=== PATIENT | female | born 1980 | race African-American/Black ===

== ENCOUNTER 2016-06-11 15:16 | Inpatient (IN) ==
[2016-06-12] MEDS ORDERED: BRETHINE SUBQ PRN (00:10)
[2016-06-12] MEDS ORDERED: TYLENOL PO PRN (00:10)
[2016-06-12] MEDS ORDERED: PEPCID PO ONE (00:10)
[2016-06-12] MEDS ORDERED: ZOFRAN IV PRN (00:10)
[2016-06-12] MEDS ORDERED: STADOL IV PRN ×3 (00:10)
[2016-06-12] MEDS ORDERED: AMBIEN PO PRN ×2 (00:10→10:22)
[2016-06-12] MEDS ORDERED: LR 1,000 ML IV ONE (00:10)
[2016-06-12] MEDS ORDERED: REGLAN PO ONE (00:10)
[2016-06-12] MEDS ORDERED: PEPCID PO PRN (00:10)
[2016-06-12] MEDS ORDERED: KEFZOL 1 GM/D5W 1 GM/50 ML IVPB IV PRN (00:10)
[2016-06-12] MEDS ORDERED: PEPCID IV PRN (00:10)
[2016-06-12] MEDS ORDERED: AMPICILLIN 2 GM/NS 2 GM/100 ML IVPB IV ONE (00:10)
[2016-06-12 02:01] LABS: MANUAL DIFF NEEDED? NO
[2016-06-12 02:22] LABS: BASO% 0.1 % (0.0-0.8); EOS# 0.06 X1000 (0.0-0.7); EOS% 0.8 % (0.0-10.0); HEMATOCRIT 34.1 % (37.0-47.0); HEMOGLOBIN 11.2 g/dL (12.0-16.0); IMM GRAN# 0.02 X1000 (0.0-0.04); IMM GRAN% 0.3 % (0.0-0.5); LYMPH# 2.44 X1000 (1.2-3.4); LYMPH% 30.9 % (20.5-51.1); MCH 28.5 PG (27-31); MCHC 32.8 g/dL (33-37); MCV 86.8 FL (81-99); MONO# 0.83 X1000 (0.11-0.59); MONO% 10.5 % (1.7-9.3); MPV 10.3 FL (7.4-10.4); NEUT% 57.4 % (42.2-75.2); PLT 281 X1000 (130-400); RBC 3.93 XMIL (4.2-5.4)
[2016-06-12] MEDS ORDERED: CYTOTEC PO ONE (03:00)
[2016-06-12] MEDS: AMPICILLIN 1 GM/NS 1 GM/50 ML IVPB IV SCH ×2 (04:49→08:50)
[2016-06-12] MEDS ORDERED: PITOCIN 30 UNITS/LR 30 UNITS/500 ML IV.SOLN IV SCH (06:30)
[2016-06-12] MEDS ORDERED: LR 2,000 ML ONE (07:20)
[2016-06-12] MEDS ORDERED: MINERAL OIL ONE (09:34)
[2016-06-12] MEDS ORDERED: XYLOCAINE-MPF 1% ONE (09:34)
[2016-06-12] MEDS ORDERED: NORCO-5 PO PRN (10:22)
[2016-06-12] MEDS ORDERED: BOOSTRIX VACCINE IM ONE (10:22)
[2016-06-12] MEDS ORDERED: PITOCIN 30 UNITS/LR 30 UNITS/500 ML IV.SOLN IV ONE (10:22)
[2016-06-12] MEDS ORDERED: NORCO-10 PO PRN (10:22)
[2016-06-12] MEDS ORDERED: PITOCIN 20 UNITS/LR 20 UNITS/1,000 ML IV.SOLN IV SCH (10:22)
[2016-06-12] MEDS ORDERED: BENADRYL IV PRN (10:22)
[2016-06-12] MEDS ORDERED: PERI MEDS (DERMOPLAST/NUPERCAINAL/TUCKS) MISC PRN (10:22)
[2016-06-12] MEDS ORDERED: CYTOTEC PO PRN (10:22)
[2016-06-12] MEDS ORDERED: PITOCIN IM PRN (10:22)
[2016-06-12] MEDS ORDERED: MINERAL OIL PO PRN (10:22)
[2016-06-12] MEDS ORDERED: PERCOCET-10 PO PRN (10:22)
[2016-06-12] MEDS ORDERED: XYLOCAINE-MPF 1% INJ PRN (10:22)
[2016-06-12] MEDS ORDERED: PERCOCET-5 PO PRN (10:22)
[2016-06-12] MEDS ORDERED: HYDROXYZINE IM PRN (10:22)
[2016-06-12] MEDS ORDERED: HYDROXYZINE PO PRN (10:22)
[2016-06-12] MEDS ORDERED: BENADRYL PO PRN (10:22)
[2016-06-12] MEDS ORDERED: M-M-R II VACCINE SUBQ ONE (10:22)
--- NOTE | 2016-06-12 11:27 | OPERATIVE NOTE ---
PROCEDURE DATE: 06/12/2016 DATE OF DELIVERY: 06/12/2016. DELIVERING PHYSICIAN: Dr. Saul Meek. TYPE OF DELIVERY: Spontaneous controlled vaginal delivery. ANESTHESIA: IV sedation and local. FINDINGS: At 0952 hours, a 6 pound 6 ounce, female was delivered in occiput anterior presentation. There was a nuchal cord x1. Apgars were 10 at 1 minute and 10 at 5 minutes. SUMMARY: Lulu Watson is a 35-year-old, 7, para 1-0-5-1, who is at 37-5/7 weeks gestation. Her blood type is A positive. Rubella immune. Hepatitis B surface antigen, HIV are negative. Group B strep is positive. Her has been complicated by chronic hypertension and gestational diabetes. Due to her advanced maternal age, gestational diabetes, and chronic hypertension, decision was made to proceed with induction of labor. She was admitted last night. She was begun on IV ampicillin for group B strep. Data: She received 1 dose of Cytotec. This morning we started IV Pitocin. Membranes ruptured and she was 3 cm. She progressed to labor rapidly and became complete. She began pushing and crowned immediately. At that point she was placed in dorsal lithotomy position. The perineum was prepped and draped in usual fashion. Spontaneous controlled vaginal delivery occurred. The nuchal cord was reduced. The cord was clamped and cut, and was handed to the nurses for further care and evaluation. Cord blood was obtained. Placenta was spontaneously delivered and was intact. There were bilateral labial lacerations which were infiltrated with Xylocaine and oversewn using 3-0 chromic suture. Blood loss approximately 200 mL. No complications. Patient remained in the LDR recovering without difficulty. cc: Saul Meek MD
[2016-06-12] MEDS: TRANDATE PO SCH (22:12)
[2016-06-13] MEDS: PERICOLACE PO SCH ×2 (00:12→21:02)
[2016-06-13] MEDS: MOTRIN PO PRN (04:52)
[2016-06-13 05:56] LABS: HEMOGLOBIN 10.7 g/dL (12.0-16.0); MCH 28.3 PG (27-31); MCHC 32.4 g/dL (33-37); MCV 87.3 FL (81-99); MPV 10.8 FL (7.4-10.4); RBC 3.78 XMIL (4.2-5.4)
[2016-06-13] MEDS: PRECARE PO SCH (08:59)
[2016-06-13] MEDS: TRANDATE PO SCH (08:59)
[2016-06-14] MEDS: MOTRIN PO PRN (05:11)
[2016-06-14] MEDS: TRANDATE PO SCH ×2 (05:18→08:11)
[2016-06-14] MEDS: PRECARE PO SCH (08:12)
[2016-06-14 08:27] VITALS: BP 138/80
== END 2016-06-14 11:30 | disposition home or self-care (01) ==
LOC: P.LD 23:32
PROVIDERS: ADMIT Obstetrics & Gynecology; ATTEND Obstetrics & Gynecology